=== PATIENT | male | born 1960 | race Two or more races ===

== ENCOUNTER 2024-03-25 17:33 | Observation (INO) | payer OTHER ==
[2024-03-25] MEDS ORDERED: ALBUTEROL SO4 0.5 % INH SOLN 2.5 MG/0.5 ML VIAL.NEB. NEB ONE (18:29)
[2024-03-25] MEDS: ALBUTEROL SO4 0.083% IH SOL 2.5 MG/3 ML VIAL.NEB. NEB ONE (18:55)
[2024-03-25 18:59] LABS: HEMATOCRIT 41.6 % (35.4-49); HEMOGLOBIN 14.8 GM/dL (11.7-16.9); MCHC 35.5 g/dl (32.0-35.9); MEAN CELL VOLUME 78.9 fl (80-96); MEAN PLT VOLUME 10.4 fl (7.5-11.1); PLATELET COUNT 185 10^3/uL (134-434); RBC 5.27 M/mm3 (4.00-5.60); RDW 16.4 % (11.9-15.9); WHITE BLOOD COUNT 20.6 K/mm3 (4.0-10.0)
[2024-03-25 19:21] LABS: POTASSIUM 3.7 mmol/L (3.5-5.1)
[2024-03-25 19:23] LABS: CALCIUM 9.6 mg/dL (8.5-10.1)
[2024-03-25 19:24] LABS: ALBUMIN 3.6 g/dl (3.4-5.0)
[2024-03-25 19:27] LABS: CREATININE 1.5 mg/dL (0.55-1.3)
[2024-03-25 19:28] LABS: BILIRUBIN,TOTAL 0.3 mg/dL (0.2-1)
[2024-03-25 19:29] LABS: TOT PROT 7.2 g/dl (6.4-8.2)
[2024-03-25 20:05] LABS: ANISOCYTOSIS 1+; MACROCYTOSIS 0
[2024-03-25 20:27] LABS: HEMATOCRIT 43.5 % (35.4-49); HEMOGLOBIN 14.9 GM/dL (11.7-16.9); MCH 27.6 pg (25.7-33.7); MCHC 34.3 g/dl (32.0-35.9); MEAN CELL VOLUME 80.5 fl (80-96); MEAN PLT VOLUME 10.4 fl (7.5-11.1); PLATELET COUNT 176 10^3/uL (134-434); RBC 5.41 M/mm3 (4.00-5.60); RDW 16.1 % (11.9-15.9); WHITE BLOOD COUNT 20.7 K/mm3 (4.0-10.0)
[2024-03-25 21:42] LABS: ANISOCYTOSIS 1+; MACROCYTOSIS 0
[2024-03-25] MEDS: SODIUM CHLORIDE 0.9% 500 ML INFUS.BAG IV ONE (22:39)
[2024-03-26 00:21] LABS: PH,URINE 5.5 (5.0-8.0); URINE APPEARANCE CLEAR; URINE BILIRUBIN NEGATIVE (NEGATIVE); URINE COLOR YELLOW; URINE GLUCOSE (UA) NEGATIVE (NEGATIVE); URINE KETONE NEGATIVE (NEGATIVE); URINE LEUK ESTERASE NEGATIVE (NEGATIVE); URINE NITRITE NEGATIVE (NEGATIVE); URINE PROTEIN NEGATIVE (NEGATIVE); URINE UROBILINOGEN 0.2 mg/dL (0.2-1.0)
[2024-03-26] MEDS: amLODIPine BESYLATE 10 MG TABLET (FP) PO ONE (02:21)
[2024-03-26 04:27] VITALS: BMI 36.0
[2024-03-26] MEDS ORDERED: CEFTRIAXONE 1 GM in DEXTROSE 5%-WATER - 50 ML IVPB ONE (08:00)
[2024-03-26 08:03] LABS: BASO % 0.5 % (0-2.0); EOS % 0.6 % (0-4.5); HEMATOCRIT 44.2 % (35.4-49); HEMOGLOBIN 15.3 GM/dL (11.7-16.9); MCH 27.9 pg (25.7-33.7); MCHC 34.5 g/dl (32.0-35.9); MEAN CELL VOLUME 80.6 fl (80-96); MEAN PLT VOLUME 10.4 fl (7.5-11.1); MONO % 7.2 % (3.8-10.2); NEUT % 70.7 % (42.8-82.8); PLATELET COUNT 163 10^3/uL (134-434); RBC 5.49 M/mm3 (4.00-5.60); RDW 16.3 % (11.9-15.9); WHITE BLOOD COUNT 17.1 K/mm3 (4.0-10.0)
[2024-03-26 08:20] LABS: POTASSIUM 3.6 mmol/L (3.5-5.1)
[2024-03-26 08:26] LABS: ALBUMIN 3.4 g/dl (3.4-5.0); CALCIUM 9.1 mg/dL (8.5-10.1)
[2024-03-26 08:29] LABS: BILIRUBIN,TOTAL 0.4 mg/dL (0.2-1)
[2024-03-26 08:30] LABS: PHOSPHOROUS 3.6 mg/dL (2.5-4.9); TOT PROT 6.9 g/dl (6.4-8.2)
[2024-03-26] MEDS: ALBUTEROL SO4 2.5/IPRATROPIUM 0.5 INH SOL 3 ML VIAL.NEB. NEB SCH (08:49)
[2024-03-26] MEDS: SODIUM CHLORIDE 1,000 ML IV SCH (09:26)
[2024-03-26] MEDS: HEPARIN NA (PORCINE) 5,000 UNITS/ML 1ML VIAL SQ SCH (09:26)
[2024-03-26] MEDS: AZITHROMYCIN 250 MG TABLET PO SCH (09:27)
[2024-03-26] MEDS: LOSARTAN 50MG/HCTZ 12.5MG 1 TAB PO SCH (09:27)
[2024-03-26] MEDS: CEFTRIAXONE 1 GM in DEXTROSE 5%-WATER - 50 ML IVPB SCH (09:27)
[2024-03-26] MEDS: amLODIPine BESYLATE 5 MG TABLET (FP) PO SCH (09:28)
[2024-03-26] MEDS ORDERED: AZITHROMYCIN 500 MG TABLET PO SCH (10:00)
[2024-03-26] MEDS ORDERED: hydrOXYzine PAMOATE 25 MG CAPSULE (FP) PO ONE (13:30)
[2024-03-26] MEDS: hydrOXYzine PAMOATE 25 MG CAPSULE (FP) PO ONE (18:36)
[2024-03-26] MEDS: ARTIFICIAL TEARS OPHTHALMIC DROPS OU PRN (22:05)
[2024-03-26] MEDS: guaiFENesin 600 MG TABLET.ER (FP) PO SCH (22:05)
[2024-03-27 06:57] LABS: HEMATOCRIT 43.9 % (35.4-49); HEMOGLOBIN 14.8 GM/dL (11.7-16.9); MCH 27.5 pg (25.7-33.7); MCHC 33.8 g/dl (32.0-35.9); MEAN CELL VOLUME 81.2 fl (80-96); MEAN PLT VOLUME 10.9 fl (7.5-11.1); PLATELET COUNT 165 10^3/uL (134-434); RDW 16.2 % (11.9-15.9); WHITE BLOOD COUNT 12.3 K/mm3 (4.0-10.0)
[2024-03-27 07:19] LABS: POTASSIUM 4.1 mmol/L (3.5-5.1)
[2024-03-27 07:22] LABS: BLOOD UREA NITROGEN 18.7 mg/dL (7-18)
[2024-03-27] MEDS: amLODIPine BESYLATE 2.5 MG TABLET (FP) PO SCH (09:27)
[2024-03-27 13:07] VITALS: RESP 18
[2024-03-27] MEDS: AZITHROMYCIN 1% OPHTH SOLN 1 BOTTLE OU SCH (21:51)
[2024-03-28 11:54] LABS: BASO % 1.3 % (0-2.0); EOS % 6.9 % (0-4.5); HEMATOCRIT 43.5 % (35.4-49); HEMOGLOBIN 15.2 GM/dL (11.7-16.9); LYMPH % 27.4 % (8-40); MCH 27.8 pg (25.7-33.7); MCHC 34.9 g/dl (32.0-35.9); MEAN CELL VOLUME 79.8 fl (80-96); MEAN PLT VOLUME 10.3 fl (7.5-11.1); MONO % 9.4 % (3.8-10.2); PLATELET COUNT 169 10^3/uL (134-434); RBC 5.45 M/mm3 (4.00-5.60); RDW 16.1 % (11.9-15.9); WHITE BLOOD COUNT 10.5 K/mm3 (4.0-10.0)
[2024-03-28 18:58] VITALS: BP 140/88; PULSE 77; TEMP 97.9
== END 2024-03-28 19:11 | disposition home or self-care (01) ==
LOC: JER 17:33 → JERBED 23:26 → OBSVTOIN 23:26 → INTOOBSV 23:26 → UNDOADMOB 23:26 → JERBED 23:37 → J4W 03-26 01:52
PROVIDERS: ADMIT Internal Medicine; ATTEND Internal Medicine
PROC: 3E0F7GC Introduction of Other Therapeutic Substance into Respiratory Tract, Via Natural or Artificial Opening (ICD-10-PCS; principal; 2024-03-25)
PROC: 3E03329 Introduction of Other Anti-infective into Peripheral Vein, Percutaneous Approach (ICD-10-PCS; 2024-03-25)
PROC: 3E023GC Introduction of Other Therapeutic Substance into Muscle, Percutaneous Approach (ICD-10-PCS; 2024-03-25)
PROC: 3E0337Z Introduction of Electrolytic and Water Balance Substance into Peripheral Vein, Percutaneous Approach (ICD-10-PCS; 2024-03-25)
DX: D43.4 Neoplasm of uncertain behavior of spinal cord (principal); I10 Essential (primary) hypertension; R73.03 Prediabetes; G47.30 Sleep apnea, unspecified; E04.1 Nontoxic single thyroid nodule; M10.9 Gout, unspecified; R63.0 Anorexia; R06.09 Other forms of dyspnea; Z90.49 Acquired absence of other specified parts of digestive tract; Z88.8 Allergy status to other drugs, medicaments and biological substances
CPT/HCPCS: 0241U-QW; 36415; 70450-TC; 71045-TC-FY; 71250-TC; 72157-TC; 74177-TC; 76775-TC; 80048; 80053; 80061; 81003; 82550; 83036; 83735; 84100; 84300; 84443; 84484; 85025; 85027; 87070; 87205; 87899; 93005; 93010; 93306-TC; 94640; 96361; 96365; 96372; 99285-25; G0378; J1644; Q9967

== ENCOUNTER 2024-12-18 10:32 | Emergency (ER) | payer OTHER ==
[2024-12-18 10:41] VITALS: BP 146/85; PULSE 80; RESP 18; TEMP 98.1; BMI 36.6
[2024-12-18] MEDS ORDERED: KETOROLAC TROMETHAMINE 30 MG/1 ML VIAL ONE (11:41)
[2024-12-18] MEDS: KETOROLAC TROMETHAMINE 30 MG/1 ML VIAL IM ONE (11:46)
== END 2024-12-18 12:58 | disposition home or self-care (01) ==
LOC: JERFT 10:32
PROC: 3E0233Z Introduction of Anti-inflammatory into Muscle, Percutaneous Approach (ICD-10-PCS; principal; 2024-12-18)
DX: M25.511 Pain in right shoulder (principal); M25.562 Pain in left knee
CPT/HCPCS: 73030-TC-RT-FY; 73562-TC-LT-FY; 99284-25